=== PATIENT | female | born 1965 ===

== ENCOUNTER 2020-07-06 15:31 | Emergency (ER) | payer OTHER ==
[~2020-07-06] VITALS: Ht 162.6 cm; Wt 63.5 kg
[2020-07-06] MEDS ORDERED: Norco 5-325 Ta1 EACH PO ×2 (17:36→17:38)
== END 2020-07-06 17:50 | disposition home or self-care (01) ==
LOC: ER 15:31
DX: S82.002A Unspecified fracture of left patella, initial encounter for closed fracture (principal); W01.0XXA Fall on same level from slipping, tripping and stumbling without subsequent striking against object, initial encounter
CPT/HCPCS: 29505; 73564; 99283-25; A9270

== ENCOUNTER → 2022-02-23 | Outpatient (CLI) | payer OTHER ==
[~2022-02-23] MED LIST: Norco 5-325 Ta1 EACH PO
== END | disposition home or self-care (01) ==
LOC: LAB SHORT 09:15
PROVIDERS: Physician Assistant
DX: Z01.419 Encounter for gynecological examination (general) (routine) without abnormal findings (principal)
CPT/HCPCS: G0145